=== PATIENT | female | born 1940 | race Two or more races ===

== ENCOUNTER 2018-01-01 11:48 | Outpatient (CLI) | payer OTHER ==
[~2018-01-01 11:48] MED LIST: BYSTOLIC10 MG PO; DIOVAN320 MG PO; GLYNASE3 MG PO; IMURAN50 MG PO; NAPROXEN500 MG PO; PREDNISONE10 MG PO; VERAPAMIL HCL240 MG PO
== END 2018-01-01 11:58 | disposition home or self-care (01) ==
LOC: RAD 11:48
DX: M05.79 Rheumatoid arthritis with rheumatoid factor of multiple sites without organ or systems involvement (principal)

== ENCOUNTER 2018-04-30 13:57 | Outpatient (CLI) | payer OTHER | END 2018-04-30 14:09 | disposition home or self-care (01) | LOC: RAD 13:57 | DX: J45.30 Mild persistent asthma, uncomplicated (principal) ==

== ENCOUNTER → 2018-08-19 | Outpatient (CLI) | payer OTHER | END | disposition home or self-care (01) | LOC: MAMO-SONO 09:45 → SONOGRAMA 10:09 → MAMO-SONO 10:09 | DX: E11.9 Type 2 diabetes mellitus without complications (principal); E78.2 Mixed hyperlipidemia; G35 Multiple sclerosis; M06.89 Other specified rheumatoid arthritis, multiple sites; R10.11 Right upper quadrant pain ==

== ENCOUNTER 2018-10-19 14:46 | Outpatient (CLI) | payer OTHER | END 2018-10-19 15:41 | disposition home or self-care (01) | LOC: MAMO-SONO 14:46 | DX: E04.1 Nontoxic single thyroid nodule (principal) ==

== ENCOUNTER 2018-10-28 13:54 | Outpatient (CLI) | payer OTHER | END 2018-10-28 14:05 | disposition home or self-care (01) | LOC: RAD 13:54 | DX: M17.0 Bilateral primary osteoarthritis of knee (principal) ==

== ENCOUNTER 2018-11-08 13:43 | Outpatient (CLI) | payer OTHER ==
[~2018-11-08] VITALS: Ht 147.3 cm; Wt 68.0 kg
== END 2018-11-09 10:18 | disposition home or self-care (01) ==
LOC: OFIC 805 13:43
DX: K21.0 Gastro-esophageal reflux disease with esophagitis (principal); R07.0 Pain in throat; R49.0 Dysphonia

== ENCOUNTER 2019-03-28 12:59 | Outpatient (CLI) | payer OTHER | END 2019-03-28 13:02 | disposition home or self-care (01) | LOC: MAMO-SONO 12:59 | DX: C50.211 Malignant neoplasm of upper-inner quadrant of right female breast (principal); Z90.13 Acquired absence of bilateral breasts and nipples ==

== ENCOUNTER 2020-01-20 08:56 | Outpatient (CLI) | payer OTHER | END 2020-01-20 09:30 | disposition home or self-care (01) | LOC: TOM 08:56 | PROVIDERS: ATTEND Internal Medicine Gastroenterology | DX: K57.92 Diverticulitis of intestine, part unspecified, without perforation or abscess without bleeding (principal) ==

== ENCOUNTER 2020-06-10 13:12 | Emergency (ER) | payer OTHER ==
[~2020-06-10] VITALS: Ht 152.4 cm; Wt 69.9 kg
[2020-06-10] MEDS ORDERED: BISOPROLOL FUMA10 MG (14:02)
[2020-06-10] MEDS ORDERED: METFORMIN HCL500 M3 (14:03)
[2020-06-10] MEDS ORDERED: NIFEDIPINE20 MG (14:03)
[2020-06-10] MEDS ORDERED: PRAVASTATIN SOD80 MG (14:04)
[2020-06-10] MEDS ORDERED: AREDS (14:04)
== END 2020-06-10 19:16 | disposition home or self-care (01) ==
LOC: ER 13:12
DX: M71.22 Synovial cyst of popliteal space [Baker], left knee (principal); I87.2 Venous insufficiency (chronic) (peripheral); I73.9 Peripheral vascular disease, unspecified

== ENCOUNTER 2020-07-03 15:30 | Outpatient (CLI) | payer OTHER ==
[~2020-07-03 15:30] MED LIST changes: +AREDS; +BISOPROLOL FUMA10 MG; +METFORMIN HCL500 M3; +NIFEDIPINE20 MG; +PRAVASTATIN SOD80 MG
== END 2020-07-03 16:24 | disposition home or self-care (01) ==
LOC: RAD 15:30
PROVIDERS: ATTEND Internal Medicine Geriatric Medicine
DX: M17.12 Unilateral primary osteoarthritis, left knee (principal)

== ENCOUNTER 2020-07-09 13:27 | Outpatient (CLI) | payer OTHER | END 2020-07-09 13:38 | disposition home or self-care (01) | LOC: RAD 13:27 | PROVIDERS: ATTEND Internal Medicine Geriatric Medicine | DX: M54.2 Cervicalgia (principal); M25.512 Pain in left shoulder ==

== ENCOUNTER 2020-07-24 13:04 | Outpatient (CLI) | payer OTHER | END 2020-07-24 13:20 | disposition home or self-care (01) | LOC: SONOGRAMA 13:04 → MAMO-SONO 13:15 → SONOGRAMA 13:20 | PROVIDERS: ATTEND Internal Medicine Nephrology | DX: N18.30 Chronic kidney disease, stage 3 unspecified (principal); R10.9 Unspecified abdominal pain ==

== ENCOUNTER 2020-12-25 12:21 | Outpatient (CLI) | payer OTHER | END 2020-12-25 12:31 | disposition home or self-care (01) | LOC: RAD 12:21 | PROVIDERS: ATTEND Internal Medicine Geriatric Medicine | DX: M17.12 Unilateral primary osteoarthritis, left knee (principal) ==

== ENCOUNTER 2021-01-01 09:17 | Outpatient (CLI) | payer OTHER | END 2021-01-01 09:24 | disposition home or self-care (01) | LOC: SONOGRAMA 09:17 | PROVIDERS: ATTEND Internal Medicine Geriatric Medicine | DX: R10.2 Pelvic and perineal pain (principal); R33.8 Other retention of urine ==

== ENCOUNTER 2021-01-26 10:18 | Outpatient (CLI) | payer OTHER | END 2021-01-26 10:29 | disposition home or self-care (01) | LOC: RAD 10:18 | DX: M54.6 Pain in thoracic spine (principal); M54.2 Cervicalgia; M54.51 Vertebrogenic low back pain; M06.8A Other specified rheumatoid arthritis, other specified site; M53.88 Other specified dorsopathies, sacral and sacrococcygeal region ==

== ENCOUNTER 2021-04-04 14:35 | Outpatient (CLI) | payer OTHER | END 2021-04-04 14:47 | disposition home or self-care (01) | LOC: SONOGRAMA 14:35 | PROVIDERS: ATTEND Internal Medicine Hematology & Oncology | DX: C50.211 Malignant neoplasm of upper-inner quadrant of right female breast (principal) ==

== ENCOUNTER 2021-06-01 11:10 | Outpatient (CLI) | payer OTHER | END 2021-06-01 11:13 | disposition home or self-care (01) | LOC: RAD 11:10 | PROVIDERS: ATTEND Internal Medicine Geriatric Medicine | DX: R06.00 Dyspnea, unspecified (principal) ==

== ENCOUNTER 2021-07-24 15:59 | Outpatient (CLI) | payer OTHER | END 2021-07-24 16:03 | disposition home or self-care (01) | LOC: RAD 15:59 | PROVIDERS: ATTEND Internal Medicine Rheumatology | DX: M05.79 Rheumatoid arthritis with rheumatoid factor of multiple sites without organ or systems involvement (principal); M15.8 Other polyosteoarthritis ==